=== PATIENT | male | born 1995 | race Native Hawaiian/Other Pacific Islander ===

== ENCOUNTER 2019-04-20 16:06 | Emergency (ER) | payer OTHER ==
[~2019-04-20] VITALS: Ht 172.7 cm; Wt 83.5 kg
[2019-04-20 17:12] LABS: PLATELET COUNT 212 K/uL (142-355)
[2019-04-20 17:21] LABS: POTASSIUM 4.4 mmol/L (3.6-5.2)
[2019-04-20 20:11] VITALS: BP 119/68; TEMP 98.1
== END 2019-04-20 20:13 | disposition home or self-care (01) ==
LOC: ED 16:17
PROVIDERS: Emergency Medicine
DX: R10.12 Left upper quadrant pain (principal); K59.00 Constipation, unspecified
CPT/HCPCS: 80053; 81000; 82150; 83690; 85027; 96374; 99284; J1885; Q9963